=== PATIENT | female | born 1945 | race Asian ===

== ENCOUNTER 2020-10-18 09:04 | Day surgery (SDC) | payer OTHER ==
[~2020-10-18] VITALS: Ht 157.5 cm; Wt 49.9 kg
[2020-10-18] MEDS ORDERED: LIDOCAINE 2% 100 MG/5 ML UJET TP ONE (12:37)
[2020-10-18] MEDS ORDERED: fentaNYL citrate 0.05 MG/ML VIAL ONE (12:37)
[2020-10-18] MEDS ORDERED: fentaNYL citrate 0.05 MG/ML VIAL IVP ONE (13:55)
== END 2020-10-18 12:55 | disposition home or self-care (01) ==
LOC: MDS 09:04 → MMU 09:05 → MDS 12:55
PROVIDERS: ATTEND Internal Medicine Gastroenterology
DX: Z12.11 Encounter for screening for malignant neoplasm of colon (principal); K63.5 Polyp of colon; K57.30 Diverticulosis of large intestine without perforation or abscess without bleeding; M10.9 Gout, unspecified; E78.5 Hyperlipidemia, unspecified; Z79.899 Other long term (current) drug therapy
CPT/HCPCS: 45385; J3010; J7030